=== PATIENT | male | born 1990 | race Caucasian/White ===

== ENCOUNTER 2024-08-15 15:37 | Emergency (ER) | payer MEDICAID, OTHER ==
[~2024-08-15] VITALS: Ht 182.9 cm; Wt 81.6 kg
[2024-08-15] MEDS ORDERED: IBUP-1490 PO (16:47)
[2024-08-15 17:02] VITALS: BP 123/73; TEMP 97.9; O2SAT 99
== END 2024-08-15 17:03 | disposition home or self-care (01) ==
LOC: ER 15:48
DX: M25.572 Pain in left ankle and joints of left foot (principal)
CPT/HCPCS: 73610-TC; 73630-TC